=== PATIENT | male | born 1950 | race Caucasian/White ===

== ENCOUNTER 2016-09-20 00:35 | Day surgery (SDC) | payer MEDICARE, MEDICAID ==
--- NOTE | 2016-09-19 16:37 | PCM.ANEPRE ---
Anesthesia Pre-Op Review Reason for Review: ABNL LABS/WEAKNESS Anesthesia Recommendations: Proceed with Procedure Additional Comments PT with SCC carcinoma of tongue base. MRI report is concerning for likely difficult airway. Recommend difficult airway precautions taken pending evaluation by DOS anesthesiologist Pasquale Loyola DO Sep 19, 2016 16:37
[~2016-09-20] VITALS: Ht 185.4 cm; Wt 74.5 kg
[~2016-09-20 00:35] MED LIST: ASPI-973 PO; ATEN50TA PO; CeFAZolin Inj 2 GM in IV Premix 1 EACH IV ONE; LORA1TAB PO; NAPR220C11 PO; ONDA-54 PO; PROM12.510 PO; PROZ20 PO; SCOP1PAT TD
[2016-09-20] MEDS ORDERED: CeFAZolin Inj 2 gm / 50mL D5W IV ONE (11:59)
[2016-09-20 12:00] VITALS: BP 161/77; PULSE 53; RESP 16; O2SAT 98
[2016-09-20] MEDS ORDERED: Lactated Ringer's 1,000 ML IV ONE (12:00)
== END 2016-09-20 17:37 | disposition home or self-care (01) ==
LOC: SAS 00:35 → OSC 15:52 → UNDOADMOB 15:52 → OSC 17:37
PROVIDERS: ATTEND General Practice
DX: C01 Malignant neoplasm of base of tongue (principal); Z53.09 Procedure and treatment not carried out because of other contraindication; I10 Essential (primary) hypertension; Z86.73 Personal history of transient ischemic attack (TIA), and cerebral infarction without residual deficits; F17.200 Nicotine dependence, unspecified, uncomplicated

== ENCOUNTER 2016-09-22 01:11 | Day surgery (SDC) | payer MEDICAID, MEDICARE ==
[~2016-09-22] VITALS: Ht 182.9 cm; Wt 73.6 kg
[2016-09-22] VITALS (11 sets, daily range): BP systolic 134–178; BP diastolic 61–78; PULSE 47–56; RESP 12–18; O2SAT 94–100
[~2016-09-22 01:11] MED LIST changes: -CeFAZolin Inj 2 GM in IV Premix 1 EACH IV ONE
[2016-09-22] MEDS ORDERED: fentaNYL-PF 50 mCg/mL 2 mL Inj ONE (08:00)
[2016-09-22] MEDS ORDERED: Glucagon 1 mg/mL Inj ONE (08:00)
[2016-09-22 08:23] LABS: BASOPHILS % (AUTO) 0.2 % (0-3); EOSINOPHILS % (AUTO) 0 % (0-5); MONOCYTES % (AUTO) 6.4 % (4-12); Mean Corpuscular Hemoglobin 27.4 pg (27.0-35.0); Mean Corpuscular Volume 81.2 fL (81-100); NEUTROPHILS % (AUTO) 81.3 % (40-74); Platelet Count 143 bil/L (150-400)
[2016-09-22 08:40] LABS: INR 1.42 ratio
--- NOTE | 2016-09-22 08:42 | NUR ---
[facility]: Pt arrived to [facility] room 4 around 0800, friend Art at bedside. VSS, pt denies any c/o pain, hx obtained from pt, blood drawn and labs sent to lab per order from R picc line, R picc line patent. NPO since mid-night, pt has had no appetite with scant po intake in 3 weeks. Consent on chart, pt aware of procedure.
[2016-09-22] MEDS ORDERED: CEFUROXIME IV PRN ×2 (08:50)
[2016-09-22] MEDS ORDERED: DEXTROSE IV PRN ×2 (08:50)
--- NOTE | 2016-09-22 09:11 | PCM.HPANE ---
Patient Data Surgeon Admitting Provider: Attending Provider:Cody Epperson MD Primary Care Physician:Kathryn Stewart Other Provider:Cole Schwarz Anesthesia Reason for Visit Tongue Cancer Ht/WT & BMI Height (Feet): 6 Height (Inches): 0.00 Weight (Kilograms): 73.600 Body Mass Index 21.98 Allergies Coded Allergies: No Known Allergies (Unverified , 09/20/16) Past Anesthesia History Anesthesia History: Positive for:: Difficult Intubation (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), Denies:: Anesthesia Reactions, Malignant Hyperthermia Additional Information: Tumor at base of tongue, limited mouth opening Diabetes History Hx Diabetes?: No MRSA MRSA: No Medications Blood Thinner: Aspirin Reported Medications Fluoxetine (Prozac)20 Mg Myszmlg56 Mg PO DAILY #30 CAPSULE Ref 3 09/18/16 Lorazepam 1 Mg Tablet1 Mg PO HS PRN Insomnia #30 TABLET Ref 3 09/18/16 Promethazine 12.5 Mg Jmhpkn68.5 Mg PO Q6H PRN For Nausea/Vomiting 09/18/16 Ondansetron 8 Mg Tablet8 Mg PO Q8H PRN For Nausea/Vomiting 09/18/16 Scopolamine (Transderm-Scop)1 Each Patch.td721.5 Mg TD Q72H #10 Ref 3 09/18/16 Naproxen Sodium (Aleve)220 Mg Ublihmy083 Mg PO BID PRN For Pain 08/28/16 Aspirin 81 Mg Xatccf22 Mg PO DAILY Ref 0 08/28/16 Atenolol 50 Mg Glberm48 Mg PO DAILY #30 TABLET Ref 0 08/28/16 History History of ENT Problems?: Yes HEENT History: Positive for:: Difficult Intubation (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) Dysphagia Sinus Problem (seasonal all) Denies:: Cataracts Glaucoma Denture Type: Full- Upper Full- Lower Teeth Condition: No Teeth Other HEENT Pertinent History: L tongue cancer, has dentures but unable to wear at this time Hx of Heart Problems?: Yes Cardiovascular History: Positive for:: Hypertension Denies:: Heart Murmur Other History/Comments Cardiac ROS negative Hx of Respiratory Problem?: Yes Respiratory History: Positive for:: Dyspnea Denies:: Asthma Chest Surgery Pneumonia Tuberculosis Use of C-PAP Machine (SNORES) Other History/Comment ROS negative, quit tobacco use one month ago Hx Neurologic Problems?: Yes Neurological History: Positive for:: CVA (4 years ago, slight L arm weakness) Dizziness Headaches Denies:: Dementia Parkinson's Disease Seizures Other History/Comments FUlly recovered from CVA 4 years ago, Hx of GI Problems?: No Gastrointestinal History: Denies:: Cirrhosis Diverticulitis Gall Bladder Disease Gastroesphageal Reflux Gastrointestinal Bleeding Heartburn Hepatitis Hiatal Hernia Liver Disease Rectal Bleeding Hx of Problems?: No Male Hx: Denies:: Prostate Problems Scrotal Mass Testicular Surgery Skin History: Denies:: History Skin Disorders? Pressure Ulcers Hx Musculoskeletal Problems?: No Hx of Psycho/Social Problems?: Yes Psycho Social History: Positive for:: Anxiety (situational at this time r/t new dx) Hx Depression (situational at this time r/t new CA dx) Hx Surgeries?: Yes (bx L jaw 09/11) Hx Any Other Health Problems?: Yes Other History: Positive for:: Cancer (SQUAMOUS CELL CA BASE OF L TONGUE) Hospitalization (DeHYDRATION @ [facility]) Denies:: Endocrine Disease Thyroid Disease History Blood Transfusions: Positive for:: Accept Blood Products? Denies:: Blood Transfusions Hx Diabetes: No Hx Alcohol Use: NoHx Substance Use: No Smoking Status: Current Every Day Smoker Have You Smoked inLast 12 mo: Yes Stop/Bang Treated for Sleep Apnea?: No Do You Have a CPAP Machine?: No Risk Assessment Category Category 1A: Patient has history of documented sleep apnea, and HAS NOT received any narcotic, sedative or anesthesia administration during this stay. Category 1B: Patient has history of documented sleep apnea, and HAS received any narcotic , sedative or anesthesia administration during this stay Category 2: Patient has SUSPECTED Obstructive Sleep Apnea, and HAS received any narcotic , sedative or anesthesia administration during this stay. Category 3: Patient has SUSPECTED Obstructive Sleep Apnea and HAS NOT received narcotic, sedative or anesthesia administration during this stay. Category 4: Outpatient in Procedural Areas with known sleep apnea or who screen positive for High Risk via the STOP/BANG questionnaire. Exam Exam Vital Signs Vital Signs Date Time Temp Pulse Resp B/P Pulse Ox O2 Delivery O2 Flow Rate FiO2 09/22/16 08:10 36.5 54 16 158/62 98 Room Air General Appearance: Alert, Oriented X3, Cooperative HEENT/AIRWAY: MP 3, Mouth Opening Lungs: Clear to Auscultation, Normal Air Movement Heart: Exam Unremarkable Additional Information Limited mouth opening, unable to assess tumor size; dentures Meds/Labs/Diagnostics Labs Test 09/22/16 08:15 White Blood Count 6.1th/mm3 (3.8-10.1) Red Blood Count 4.78mil/mm3 (4.40-5.80) Hemoglobin 13.1g/dL (13.8-17.2) Hematocrit 38.8% (41.0-50.0) Mean Corpuscular Volume 81.2fL (81-100) Mean Corpuscular Hemoglobin 27.4pg (27.0-35.0) Mean Corpuscular Hemoglobin Concent 33.8% (32.0-37.0) Red Cell Distribution Width 14.2% (12.3-15.4) Platelet Count 143bil/L (150-400) Neutrophils (%) (Auto) 81.3% (40-74) Lymphocytes (%) (Auto) 11.8% (14-46) Monocytes (%) (Auto) 6.4% (4-12) Eosinophils (%) (Auto) 0% (0-5) Basophils (%) (Auto) 0.2% (0-3) Prothrombin Time 15.3sec (8.1-12.5) Prothromb Time International Ratio 1.42ratio Sodium Level 142mEq/L (134-144) Potassium Level 4.1mEq/L (3.5-5.2) Chloride Level 105mEq/L (97-108) Carbon Dioxide Level 20mmol/L (18-29) Blood Urea Nitrogen 40mg/dL (8-27) Creatinine 1.07mg/dL (0.76-1.27) Estimat Glomerular Filtration Rate 73mL/min (>59) Glucose Level 90mg/dL (60-99) Calcium Level 8.5mg/dL (8.5-10.1) Plan Impression Patient chart reviewed, patient interviewed and anesthestic plan with risks, benefits, and alternatives discussed, and informed consent obtained. ASA Physical Status: ASA4 Life Threatening Anesthetic Plan: MAC HP Complete Prior to Induction: Yes Other Discussed risks of loss of airway, inability to oxygenate/Ventilate with both patient and Provider. Plan for MAC, light sedation v awake fiberscope to secure airway/awake trach Randolph Rao MD Sep 22, 2016 09:11
[2016-09-22] MEDS ORDERED: Heparin 1,000 Unit/mL 10 mL Inj ONE (11:36)
[2016-09-22] MEDS ORDERED: 0.9% Sodium Chloride 1,000 ML ONE (11:36)
--- NOTE | 2016-09-22 13:19 | NUR ---
Procedure: Pt taken to procedure at 1315 in bed per lab associate staff, report given to lab associate RN and anesthesia. Addendum: 09/22/16 at 1504 by JUSTINE WESLEY RN Pt arrived back to [facility] room 4 post G tube placement at 1430, no c/o pain. VSS with 15L Non-rebreather with SpO2 99-100%. Anesthesia at bedside initially. G-tube connected to low-intermittent suction per order with 100 ml of immediate dark red-brownish drainage, MD aware of drainage color. Pt to be admitted overnight. Friend, Art, at bedside and aware of plan of care. Addendum: 09/22/16 at 1505 by JUSTINE WESLEY RN L upper abdomen G tube insertion site with 2x2 gauze dressing C/D/I, no drainage at insertion site. Addendum: 09/22/16 at 1617 by JUSTINE WESLEY RN Taken to [facility] room 1016 by MARIE larkin at 1545.
--- NOTE | 2016-09-22 14:27 | PCM.ANEP1 ---
Post Anesthesia Phase 1 PACU Phase 1 Assessment Vital Signs Vital Signs Date Time Temp Pulse Resp B/P Pulse Ox O2 Delivery O2 Flow Rate FiO2 09/22/16 08:10 36.5 54 16 158/62 98 Room Air Anesthetic Administered: MAC Level of Alertness: Sleepy, easy to arouse SHAY's with Equal Strength: Yes Pain: No Nausea or Vomiting: No Cardiovascular Function and Hy: Yes Lungs: Clear to Auscultation, Normal Air Movement Dermatome Level: Full Sensation Complications: No Randolph Rao MD Sep 22, 2016 14:27
--- NOTE | 2016-09-22 15:51 | DRSVH ---
PROCEDURE: PERCUTANEOUS GASTRSTOMY INSRT INDICATIONS: Ca COMPARISON: None. Technique: 1. Fluoroscopically-guided rectal contrast administration. 2. Fluoroscopically-guided gastropexy suture placement x3. 3. Fluoroscopically-guided gastrostomy tube placement. The indications, alternatives, benefits, risks, and complications of the procedure were explained to the patient. Informed written consent was obtained and placed in the chart. The patient was brought to the angiography suite, and conscious sedation was administered intravenously by long-term s [facility], while continuous cardiorespiratory monitoring was performed. A glide wire and Kumpe catheter were passed under fluoroscopy with the tip of the catheter in the gas tric lumen. The wire was removed. Maximum sterile barrier technique was employed per standard protocol, including hand hygiene, cap, ma sk, sterile gown and gloves, and 2% chlorhexidine. Sterile ultrasound probe cover was also utilized. Ultrasound was utilized to evaluate for the inferior margin of the liver and was demarcated on the skin. 1% lidocaine was used to anesthetize the skin over the area of interest. Glucagon was administe red intravenously, and the stomach was insufflated under fluoroscopic guidance. 3 gastropexy sutures were deployed under fluoroscopy. Intraluminal location was confirmed with aspiration of gas and injec tion of contrast. Next, a gastrostomy was performed. A stiff 035 wire was advanced into the gastric l umen. A gastrostomy tube was advanced over the wire into the gastric lumen and intraluminal location was confirmed with contrast injection. The gastropexy sutures a gastrostomy tube were secured at the skin with an adhesive bandage. FINDINGS: Initial fluoroscopic image demonstrates adequate contrast within the transverse colon. Fin al spot fluoroscopic image demonstrates intraluminal location of the gastrostomy tube and gastropexy sutures. IMPRESSION: Status post fluoroscopically-guided gastrostomy tube placement. Plan: The patient will remain overnight with the tube to low intermittent suction. Tube feeds will be advan teresa slowly tomorrow morning. Dictated by: Lucinda Willis M.D. on 09/22/2016 at 15:41 Approved by: Lucinda Willis M.D. on 09/22/2016 at 15:50
--- NOTE | 2016-09-22 16:26 | NUR ---
[employer] Converter Blower D/A: SHEET LAYER received a T/C from Keann with [facility] [phone] noting that [facility] had received the faxed MD order for the patient's Tube Feeding prescription. Kenan noted that an [facility] nurse was hoping to meet with the patient and caregiver prior to the patient's D/C from the hospital (patient resides approximately [place] from [facility]); to provide the DME, Formula, and patient education in addition to being available to answer any patient questions. SHEET LAYER contacted the patient's caregiver/brother Júnior Clinton [phone] and provided him with [facility] contact information and conveyed their intent to meet with the patient prior to D/C, SHEET LAYER encouraged Art to contact [facility]. SHEET LAYER also updated Alae LOMBARDO on [facility] about [facility] plan including contact information for both [facility] and patient's caregiver. P: SHEET LAYER will follow-up with patient/caregiver on Sunday in follow-up. No other psychosocial concerns noted at this time. Ricky Flores AIRCRAFT REFUELER, SHEET LAYER
[2016-09-22] MEDS ORDERED: HYDROcodone-APAP 5-325 mg Tablet PO PRN (16:30)
[2016-09-22] MEDS ORDERED: Polyethylene Glycol (PEG) 17 Gm Powder PO PRN (16:30)
[2016-09-22] MEDS ORDERED: Ondansetron 2 mg/mL 2 mL Inj IVPUSH PRN (16:30)
[2016-09-22] MEDS ORDERED: Alum-Mag Hydrox-Simeth 30 mL Suspension PO PRN (16:30)
--- NOTE | 2016-09-22 16:44 | PCM.HPMED ---
Subjective Date of Service Sep 22, 2016 Primary Provider: Admitting Physician: Danna Pan MD Primary Care Physician: Kathryn Stewart Attending Physician: Cody Epperson MD Chief Complaint: G-tube placement, needs observed overnight per radiology History of Present Illness: He was recently diagnosed with cancer at the base of the tongue. His first round of chemotherapy was September 04 and his next round of schedule 3 days from now. His intake has been poor, eating very little the past 3 weeks or so, although able to drink water which she estimates has been about a liter per day. He and his roommate say he tolerated the chemotherapy quite poorly, mostly because he became so dehydrated. A G-tube was placed by interventional radiology today and they have requested that we observe him overnight with the tube to low intermittent suction. Tomorrow tube feedings can be started and he could be discharged home according to Dr. Willis. Review of Systems: Unremarkable other than mild pedal edema recently. 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 is his daughter Angely Mcdonough Exam Vital Signs Vital Sign - Last Date Time Temp Pulse Resp B/P Pulse Ox O2 Delivery O2 Flow Rate FiO2 09/22/16 16:11 52 16 163/78 95 Room Air 09/22/16 15:30 4.00 09/22/16 08:10 36.5 Exam General: Alert and oriented, no acute distress, some slurring of speech HEENT: bilat firm submand adenopathy Heart: Regular Lungs: Clear Abdomen: Soft, non-tender, BT present, no masses or HSM apparent Extremities: Trace pedal edema Neuro: No apparent deficits, hand deputy insurance commissioner strong and equal, raises both legs off the bed against resistance Lab and Diagnostics Result Diagram: 09/22/1615 09/22/16814 Assessment & Plan Squamous cell carcinoma of the base of the tongue, unable to take in adequate nutrition, G-tube was placed today by Dr. Willis (cell [phone]). As he has requested will admit the patient to observation overnight on low intermittent suction and if G-tube seems to be in proper position tomorrow begin tube feedings. History of hypertension and CVA, will continue his atenolol and aspirin. Danna Pan MD Sep 22, 2016 16:43
[2016-09-22] MEDS: 0.9% Sodium Chloride 1,000 ML IV SCH (17:40)
--- NOTE | 2016-09-22 18:34 | NUR ---
FROM [facility] Patient received from [facility] via a gurney. Patient denies pain/nausea/SOB. G-tube attached to LIS with brownish output. 1 lumen PICC line is drawing blood and brisk blood return. IVF started. Oriented to room, call light and bathroom.
[2016-09-22] MEDS: Famotidine Inj 20 MG in IV Premix 1 EACH IV SCH (20:26)
[2016-09-22 23:43] LABS: APPEARANCE,URINE HAZY (CLEAR,HAZY); COLOR,URINE DARK YELLOW (YELLOW); OCCULT BLOOD,URINE NEGATIVE (NEGATIVE); UROBILINOGEN,URINE NORMAL (NORMAL)
[2016-09-23 00:39] VITALS: BP 166/80; PULSE 55; RESP 20; O2SAT 92
[2016-09-23] MEDS: 0.9% Sodium Chloride 1,000 ML IV SCH ×2 (03:59→12:27)
[2016-09-23 05:03] VITALS: BP 181/81; PULSE 53; RESP 20; O2SAT 98
--- NOTE | 2016-09-23 06:00 | NUR ---
GI G-tube to LIS overnight. Dark brown output, no c/o abdominal pain. B/p increased this morning to 180/81 with HR 53. Hospitalist made aware.
--- NOTE | 2016-09-23 08:28 | NUR ---
NUTRITION ASSESSMENT: ASSESS:66 YO male with base of tongue squamous cell carcinoma, status post PEG tube placement by IR yesterday. The plan is to start trophic feeding this morning to ensure there are no issues. [facility] staff will meet with patient and brother, Júnior, at noon, to discuss home care of PEG tube and deliver enteral formula, supplies and DME. Patient can be safely discharged once this meeting takes place. [employer] has completed insurance authorization, for which I am grateful, as this will provide a seamless transition for patient. He is severely malnourished, with weight loss of 14.09 kg x 1 month (15.9% BW) = severe malnutrition. PMHx:CVA, HTN, full dentures, base of tongue squamous cell carcinoma. DIET:Clear liquids. LABS: Reviewed. BUN 40. MEDICATIONS: Reviewed. NUTRITION FOCUSED PHYSICAL ASSESSMENT: GI symptoms / stool: None reported.Brett: None reported. Skin Integrity: No issues reported. Patient appears cachectic, with prominent, protruding bones in the clavicle bone region. He has slight dark circles around his orbital region. ANTHROPOMETRICS: Current Wt: 73.6 kgBMI: 22.0 kg/m2. IBW: 80.9 kg (91% IBW) ESTIMATED NEEDS (CANCER CACHEXIA, WEIGHT GAIN): Calories: 1840 - 2208 kcal (25 - 30 kcal / kg BW) Protein: 74 - 110 g protein (1.0 - 1.5 g / kg BW) Fluid: 1840 - 2208 mL (approx. 1 mL / kcal / D NUTRITION DIAGNOSIS: 1) Severe malnutrition related to tongue cancer, as evidenced by 14.09 kg weight loss x 1 month (15.9% BW). 2)Chewing / swallowing difficulties related to tongue cancer, as evidenced by inability to consume sufficient energy, severe malnutrition. INTERVENTION: 1) Orders written to initiate trophic feeding to ensure tube is functional and patient can tolerate enteral feeding. 2) [facility] staff will meet patient and caregiver today in patient's room prior to discharge. 3)I paged Speech Therapy for order for swallow evaluation, which is pertinent to insurance authorization for home care and supplies. 4)In the event pt. is able to take in some oral nutrition, will provide coupons for supplements at discharge. MONITOR/EVALUATE: Enteral feeding start / tolerance, meeting with [facility] staff, labs, GI/nutrition status. Follow up per high nutrition risk guidelines.
--- NOTE | 2016-09-23 08:41 | PCM.DIMED ---
Discharge Instructions Date of Service Sep 23, 2016 Dates of Hospitalization Sep 22, 2016 at 16:15 Discharge Diagnosis Discharge Diagnosis Tongue cancer, s/p gastrostomy tube placement Diet No restrictions, Other (tube feedings as per catalytic converter operator helper) Activity No restrictions Call your provider Shortness of breath, Vomitting Patient Instructions Follow-up plan Follow-up as previously planned by your physicians Danna Pan MD Sep 23, 2016 08:41
--- NOTE | 2016-09-23 08:51 | PCM.DC.MED ---
Discharge Summary Date of Service Sep 23, 2016 Dates of Hospitalization Date of Hospital Admission Sep 22, 2016 at 16:15 Date of Discharge: Sep 23, 2016 Providers: Admitting Physician: Danna Pan MD Primary Care Physician: Kathryn Stewart Attending Physician: Cody Epperson MD Diagnosis at Time of Discharge Diagnosis at Time of Discharge Tongue cancer, s/p gastrostomy tube placement Brief History He was recently diagnosed with cancer at the base of the tongue. His first round of chemotherapy was September 04 and his next round of schedule 3 days from now. His intake has been poor, eating very little the past 3 weeks or so, although able to drink water which he estimates has been about a liter per day. He and his roommate say he tolerated the chemotherapy quite poorly, mostly because he became so dehydrated. A G-tube was placed by interventional radiology today and they have requested that we observe him overnight with the tube to low intermittent suction. Tomorrow tube feedings can be started and he could be discharged home according to Dr. Willis. Hospital Course Squamous cell carcinoma of the base of the tongue, unable to take in adequate nutrition, G-tube was placed yesterday by Dr. Willis (cell [phone]). As he has requested patient admitted to observation overnight on low intermittent suction and can be discharged today. Per my phone conversation with the junior php developer the plan originally was to have [facility]" come to his home after discharge to get him set up with tube feedings and give him instructions. However he [place] down on [facility] so they are instead coming to the hospital to meet with him and he can be discharged home after History of hypertension and CVA, his atenolol and aspirin were continued. Systolic blood pressures have been somewhat elevated but patient reports blood pressure is lower by home blood pressure readings on his current regimen so will not make any changes. Exam Vital Signs (Last) Date Time Temp Pulse Resp B/P Pulse Ox O2 Delivery O2 Flow Rate FiO2 09/23/16 05:03 36.5 53 20 181/81 98 Room Air 09/22/16 15:30 4.00 Exam General: Alert and oriented, no acute distress Heart: Regular Lungs: Clear Abdomen: Soft, non-tender, G tube draining gastric contents Extremities: No pedal edema Test 09/22/16 08:15 09/22/16 22:45 White Blood Count 6.1th/mm3 (3.8-10.1) Red Blood Count 4.78mil/mm3 (4.40-5.80) Hemoglobin 13.1g/dL (13.8-17.2) Hematocrit 38.8% (41.0-50.0) Mean Corpuscular Volume 81.2fL (81-100) Mean Corpuscular Hemoglobin 27.4pg (27.0-35.0) Mean Corpuscular Hemoglobin Concent 33.8% (32.0-37.0) Red Cell Distribution Width 14.2% (12.3-15.4) Platelet Count 143bil/L (150-400) Neutrophils (%) (Auto) 81.3% (40-74) Lymphocytes (%) (Auto) 11.8% (14-46) Monocytes (%) (Auto) 6.4% (4-12) Eosinophils (%) (Auto) 0% (0-5) Basophils (%) (Auto) 0.2% (0-3) Prothrombin Time 15.3sec (8.1-12.5) Prothromb Time International Ratio 1.42ratio Sodium Level 142mEq/L (134-144) Potassium Level 4.1mEq/L (3.5-5.2) Chloride Level 105mEq/L (97-108) Carbon Dioxide Level 20mmol/L (18-29) Blood Urea Nitrogen 40mg/dL (8-27) Creatinine 1.07mg/dL (0.76-1.27) Estimat Glomerular Filtration Rate 73mL/min (>59) Glucose Level 90mg/dL (60-99) Calcium Level 8.5mg/dL (8.5-10.1) Urine Color Dark yellow (YELLOW) Urine Appearance Hazy (CLEAR,HAZY) Urine pH 5.0 (5.0-8.0) Urine Specific [place] 1.025 (1.003-1.035) Urine Protein Negativemg/dL (NEG,TRACE) Urine Glucose (UA) Negativemg/dL (NEGATIVE) Urine Ketones 15mg/dL (NEGATIVE) Urine Occult Blood Negative (NEGATIVE) Urine Nitrite Negative (NEGATIVE) Urine Bilirubin Negative (NEGATIVE) Urine Urobilinogen Normalmg/dL (NORMAL) Urine Leukocyte Esterase Negative (NEGATIVE) Urine RBC 0-2/hpf (0-2) Urine WBC 0-5/hpf (0-5) Urine Epithelial Cells Occasional/hpf (NONE-MOD) Urine Crystals Uric acid crystals (NONE Urine Bacteria Few/hpf (NONE-FEW) Urine Hyaline Casts Occasional/lpf (NONE) Urine Granular Casts Occasional (NONE SEEN) Urine Waxy Casts None seen (NONE SEEN) Urine Red Blood Cell Casts None seen (NONE SEEN) Urine White Blood Cell Casts Occasional (NONE SEEN) Urine Mucus None seen (None Seen) Urine Trichomonas None seen (NONE SEEN) Urine Yeast None (NONE SEEN) Urinalysis Comment None Urine Culture Reflexed Not indicated Discharge Medications Discharge Medications Aspirin (Aspirin) 81 Mg Tablet 81 MG PO DAILY (Reported) Atenolol (Atenolol) 50 Mg Tablet 50 MG PO DAILY (Reported) Fluoxetine (Prozac) 20 Mg Capsule 20 MG PO DAILY (Reported) Scopolamine (Transderm-Scop) 1 Each Patch.td72 1.5 MG TD Q72H (Reported) As needed Lorazepam (Lorazepam) 1 Mg Tablet 1 MG PO HS PRN PRN Insomnia (Reported) Ondansetron (Ondansetron) 8 Mg Tablet 8 MG PO Q8H PRN PRN For Nausea/Vomiting ( Reported) Promethazine (Promethazine) 12.5 Mg Tablet 12.5 MG PO Q6H PRN PRN For Nausea/ Vomiting (Reported) Followup Plan Follow-up plan Follow-up as previously planned by your physicians Discharge Diet: No restrictions, Other (tube feedings as per junior php developer) Discharge Activity: No restrictions Danna Pan MD Sep 23, 2016 08:51
[2016-09-23] MEDS: Famotidine Inj 20 MG in IV Premix 1 EACH IV SCH (09:04)
--- NOTE | 2016-09-23 10:00 | NUR ---
tube feeding started TF, Jevity 1.5 at 25 cc/hr, pt tolerated very well, denies pain or nausea, having no symptoms at this time
--- NOTE | 2016-09-23 10:36 | NUR ---
Social Work- Brief Note Data: EMR reviewed. Pt is on day 1 of hospitalization for tongue cancer. Pt is s/p PEG tube placement. [facility] is following pt for infusion needs. Floor SW received call from Oncology SW regarding pt's discharge plan. [facility] RN will meet with pt at bedside in the hospital at 1200 today to provide teaching and supplies to pt prior to discharge. Pt to discharge to home with [facility] and friend to transport via POV. SW will continue to follow. Assessment: Pt who will need infusion at discharge Plan: [facility] RN to provide teaching and supplies to pt prior to discharge. Pt to discharge to home with [facility] and friend to transport via POV. SW will continue to follow. GRUPO Fine
--- NOTE | 2016-09-23 11:55 | NUR ---
Evaluation completed. Please go to "Notes" then click on "Assessments and Notes" (bottom left corner of screen). Then select appropriate discipline tab on top of screen.
--- NOTE | 2016-09-23 12:30 | NUR ---
pt discharged home with friend, who will be helping him with tube feeding. Nurse from [facility] came here and showed them how to run tube feedings for home. They both felt comfortable with it before she left. She also left all of the supplies he would need for home. Also he has appt scheduled for 10/25 here at [facility] to replace the tube in 1 month
== END 2016-09-23 12:59 | disposition home or self-care (01) ==
LOC: SOUO 01:11 → OSC 16:15 → INTOOBSV 16:15 → UNDOADMOB 16:15 → OSC 16:15 → SOUO 09-23 12:59 → UNDODISOB 09-23 12:59
PROVIDERS: ATTEND Internal Medicine Hematology & Oncology
DX: C01 Malignant neoplasm of base of tongue (principal)
CPT/HCPCS: 36415; 49440; 80048; 81000; 85025; 85610; 92610; C1729; C1769; G8996; G8997; J1610; J1644; J2250; J3010; J3490; J7030; Q9967

== ENCOUNTER 2016-10-25 00:46 | Day surgery (SDC) | payer MEDICARE, MEDICAID ==
[2016-09-25 13:33] VITALS: BP 158/64; PULSE 50; RESP 16; O2SAT 100
[~2016-10-25 00:46] MED LIST changes: -NAPR220C11 PO
[2016-10-25] MEDS ORDERED: Lactated Ringer's 1,000 ML IV SCH (05:00)
--- NOTE | 2016-10-25 08:38 | PCM.HPANE ---
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), Denies:: Anesthesia Reactions, Malignant Hyperthermia Diabetes History Hx Diabetes?: No MRSA MRSA: No Medications Blood Thinner: Aspirin Hypertension Medication: No Home Meds Incl Beta Jose: Yes Reported Medications Fluoxetine (Prozac)20 Mg Elbvnes95 Mg PO DAILY #30 CAPSULE Ref 3 09/18/16 Lorazepam 1 Mg Tablet1 Mg PO HS PRN Insomnia #30 TABLET Ref 3 09/18/16 Promethazine 12.5 Mg Eitudg69.5 Mg PO Q6H PRN For Nausea/Vomiting 09/18/16 Ondansetron 8 Mg Tablet8 Mg PO Q8H PRN For Nausea/Vomiting 09/18/16 Scopolamine (Transderm-Scop)1 Each Patch.td721.5 Mg TD Q72H #10 Ref 3 09/18/16 Aspirin 81 Mg Ibjogi29 Mg PO DAILY Ref 0 08/28/16 Atenolol 50 Mg Twcjdz73 Mg PO DAILY #30 TABLET Ref 0 08/28/16 History History of ENT Problems?: Yes HEENT History: Positive for:: Difficult Intubation (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) Dysphagia Sinus Problem (seasonal all) Denies:: Cataracts Denture Type: None Teeth Condition: Within Normal Limits Hx of Heart Problems?: Yes Cardiovascular History: Positive for:: Hypertension Denies:: Heart Murmur Hx of Respiratory Problem?: Yes Respiratory History: Positive for:: Dyspnea Denies:: Asthma Chest Surgery Pneumonia Tuberculosis Use of C-PAP Machine (SNORES) Hx Neurologic Problems?: Yes Neurological History: Positive for:: CVA (4 years ago, slight L arm weakness) Dizziness Headaches Denies:: Dementia Parkinson's Disease Seizures Hx of GI Problems?: No Hx of Problems?: No Male Hx: Denies:: Prostate Problems Scrotal Mass Testicular Surgery Skin History: Denies:: History Skin Disorders? Pressure Ulcers Hx Musculoskeletal Problems?: No Hx of Psycho/Social Problems?: Yes Psycho Social History: Positive for:: Anxiety (situational at this time r/t new dx) Hx Depression (situational at this time r/t new CA dx) Hx Surgeries?: Yes (bx L jaw 09/11) Hx Any Other Health Problems?: Yes Other History: Positive for:: Cancer (SQUAMOUS CELL CA BASE OF L TONGUE) Hospitalization (DeHYDRATION @ [facility]) Denies:: Endocrine Disease Thyroid Disease History Blood Transfusions: Denies:: Blood Transfusions Hx Diabetes: No Hx Alcohol Use: NoHx Substance Use: No Smoking Status: Former Smoker Have You Smoked inLast 12 mo: Yes Stop/Bang Treated for Sleep Apnea?: No Do You Have a CPAP Machine?: No JONATHAN Risk Assessment: Low Risk, <3 Yes Risk Assessment Category Category 1A: Patient has history of documented sleep apnea, and HAS NOT received any narcotic, sedative or anesthesia administration during this stay. Category 1B: Patient has history of documented sleep apnea, and HAS received any narcotic , sedative or anesthesia administration during this stay Category 2: Patient has SUSPECTED Obstructive Sleep Apnea, and HAS received any narcotic , sedative or anesthesia administration during this stay. Category 3: Patient has SUSPECTED Obstructive Sleep Apnea and HAS NOT received narcotic, sedative or anesthesia administration during this stay. Category 4: Outpatient in Procedural Areas with known sleep apnea or who screen positive for High Risk via the STOP/BANG questionnaire. Exam Exam General Appearance: Alert, Oriented X3, Cooperative, No Acute Distress HEENT/AIRWAY: MP 2 Lungs: Clear to Auscultation, Normal Air Movement Heart: Exam Unremarkable, Regular Rate/Rhythm, No Murmurs/Rubs/Gallops Plan Impression Patient chart reviewed, patient interviewed and anesthestic plan with risks, benefits, and alternatives discussed, and informed consent obtained. ASA Physical Status: ASA3 Severe Disease Anesthetic Plan: MAC Bene/Risks/Altern/Consents: Yes HP Complete Prior to Induction: Yes Other case cancelled Pierce Sue MD October 25, 2016 08:38
[2016-10-25 13:03] VITALS: BP 110/82; PULSE 99; RESP 26; O2SAT 92
== END 2016-10-25 23:59 | disposition home or self-care (01) ==
LOC: SOUO 00:46
PROVIDERS: ATTEND Radiology Vascular & Interventional Radiology
DX: C01 Malignant neoplasm of base of tongue (principal)